=== PATIENT | female | born 1955 | race Caucasian/White ===

== ENCOUNTER → 2022-07-22 | Outpatient (CLI) | payer MEDICARE, BC ==
[~2022-07-22] MED LIST: BRIN1TAB3 PO; MEMA10TA19 PO
== END ==
LOC: M ONCR 08:46
PROVIDERS: ATTEND General Practice
DX: C50.511 Malignant neoplasm of lower-outer quadrant of right female breast (principal); I10 Essential (primary) hypertension; Z87.891 Personal history of nicotine dependence; Z79.899 Other long term (current) drug therapy; Z80.3 Family history of malignant neoplasm of breast; Z80.7 Family history of other malignant neoplasms of lymphoid, hematopoietic and related tissues; Z85.828 Personal history of other malignant neoplasm of skin

== ENCOUNTER → 2022-07-25 | Outpatient (RCR) | payer MEDICARE, BC | LOC: M ONCR 12:42 | PROVIDERS: ATTEND General Practice | DX: C50.511 Malignant neoplasm of lower-outer quadrant of right female breast (principal) ==

== ENCOUNTER 2022-08-13 12:17 | Outpatient (RCR) | payer MEDICARE, BC | END 2022-08-25 | LOC: M ONCR 12:17 | PROVIDERS: ATTEND General Practice | DX: C50.511 Malignant neoplasm of lower-outer quadrant of right female breast (principal) ==